=== PATIENT | male | born 1995 | race Hispanic/Latino ===

== ENCOUNTER 2022-07-24 16:15 | Emergency (ER) | payer MEDICAID, OTHER ==
[~2022-07-24] VITALS: Ht 175.3 cm; Wt 80.7 kg
[2022-07-24 16:53] LABS: HEMATOCRIT 48.5 % (42-54); MEAN CORPUSCULAR HEMOGLOBIN 29.4 pg (27.0-33.0); MEAN CORPUSCULAR VOLUME 86.3 fL (79-99); RED BLOOD CELL COUNT(AUTO) 5.62 MIL/uL (4.50-6.20); RED CELL DISTRIBUTION WIDTH 12.4 % (11.0-15.5); WHITE BLOOD COUNT (AUTO) 7.5 K/uL (4.8-10.8)
[2022-07-24 16:55] LABS: APPEARANCE,URINE CLEAR (CLEAR); BILIRUBIN,URINE NEGATIVE (NEGATIVE); COLOR,URINE YELLOW (YELLOW); GLUCOSE, URINE (UA) NEGATIVE (NEGATIVE); KETONES,URINE NEGATIVE (NEGATIVE); LEUKOCYTE ESTERASE ,URINE NEGATIVE Leu/uL (NEGATIVE); NITRATE,URINE NEGATIVE (NEGATIVE); OCCULT BLOOD,URINE LARGE (NEGATIVE); PROTEIN,URINE 20 mg/dL (NEGATIVE); UROBILINOGEN,URINE 0.2 mg/dL (0.2-1.0)
[2022-07-24] MEDS ORDERED: DIPHENOXYLATE HCL/ATROPINE 2.5/0.025 MG TAB PO ONE (17:00)
[2022-07-24] MEDS ORDERED: IBUPROFEN 600 MG TABLET PO ONE (17:00)
[2022-07-24] MEDS ORDERED: FAMOTIDINE 20MG VIAL IV ONE (17:00)
[2022-07-24] MEDS ORDERED: 0.9%NACL 1000ML 1,000 ML IV ONE ×2 (17:00→18:30)
[2022-07-24] MEDS ORDERED: ACETAMINOPHEN 500 MG TABLET PO ONE (17:00)
[2022-07-24] MEDS ORDERED: MORPHINE 2 MG SYG IVP ONE (17:00)
[2022-07-24] MEDS ORDERED: ONDANSETRON 4MG INJ IVP ONE (17:00)
[2022-07-24 17:01] LABS: BACTERIA,URINE RARE /HPF (None Seen); MUCUS,URINE RARE LPF (None Seen)
[2022-07-24 17:04] LABS: POTASSIUM 3.2 mmol/L (3.5-5.1)
[2022-07-24 17:13] LABS: ALBUMIN 3.9 g/dL (3.5-5.0)
[2022-07-24] MEDS ORDERED: POTASSIUM BICARB/CIT AC 25 MEQ TABLET.EFF PO ONE (19:00)
[2022-07-24 19:06] VITALS: BP 109/60
[2022-07-24] MEDS ORDERED: DICY20TA2 PO (19:14)
[2022-07-24] MEDS ORDERED: BACI1CAP6 PO (19:14)
[2022-07-24] MEDS ORDERED: FAMO-136 PO (19:14)
[2022-07-24] MEDS ORDERED: ONDA4TAB10 PO (19:14)
== END 2022-07-24 19:32 | disposition home or self-care (01) ==
LOC: EDH 16:15
DX: K52.9 Noninfective gastroenteritis and colitis, unspecified (principal); Z88.0 Allergy status to penicillin; Z20.822 Contact with and (suspected) exposure to COVID-19
CPT/HCPCS: 99285; 96374; 71045; 96375; 87635; 96361; 84484; 80053; 85027; 87040 ×2; 87804 ×2; 83605; 81001; 36415; 93005; C9803; J3490; J7030 ×2; J2405